=== PATIENT | female | born 2000 | race Hispanic/Latino ===

== ENCOUNTER 2024-05-01 09:48 | Emergency (ER) | payer BC, SELFPAY ==
[2024-05-01 09:50] VITALS: BP 109/75
--- NOTE | 2024-05-01 10:35 | ED.GENMED ---
History of Present Illness
General
Chief Complaint: Breast Problem
Source: patient
Exam Limitations: none
Time Seen by Provider: 05/01/24 10:08
Nursing documentation reviewed up to this point in time: agreed with
History of Present Illness
History of Present Illness:
23-year-old female who states she is nursing her [id number] baby and also at 5 AM today she did a home test which was positive. She has been treated for mastitis and has had a total of 10 doses of Keflex 500 mg. She states she had a
fever of 102 2 days ago and 101 yesterday she has been alternating ibuprofen and Tylenol. Last Tylenol was 5 AM. She also has a headache, nausea and general body aches.
Past History
Past History
ED Past Medical History: Other (anemia, ovArian cyst)
ED Past Surgical History: None
PSI?: No
Social History
Tobacco: Non-smoker
Alcohol: None
Drug: None
Personal: Single
Family History
Family History: Negative Diabetes, Hypertension or CAD
Review of Systems
Review of Systems
Allergies reviewed?: Yes
All Other Systems: ROS reviewed and negative except as documented in HPI and ROS
Constitutional: Reports fever and chills
Respiratory: Denies trouble breathing
Cardiac: Denies chest pain
ABD/GI: Reports nausea (mild); Denies abdominal pain or vomiting
: Reports no symptoms
Musculoskeletal: Reports other (general body aches)
Skin: Reports other (local tender area right breast, mastitis much improved on Keflex)
Neurological: Reports headache
Phy Exam
Physical Exam
Physical Exam:
GENERAL: No acute distress. A&Ox3.
CONSTITUTIONAL: Afebrile.
EYES: PERRL, conjunctivae normal
ENMT: moist mucus membranes, Pharynx nl
RESPIRATORY: Regular respirations, nonlabored, lungs clear.
CARDIOVASCULAR: Regular rate and rhythm, no murmurs, no rubs.
GI: Soft, nontender, normal BS
MUSCULOSKELETAL: Moves with ease. Well perfused.
SKIN: Warm, dry, pink. The breast is normal-appearing, no erythema or swelling. There is an exquisitely tender area at 10:00 just over the nipple, no palpable masses.
PSYCH: Normal mood and affect. Well kept, interactive and appropriate
NEUROLOGIC: Awake, alert and oriented. No focal neurological deficits
Course
Orders/Labs/Results
Orders:
Orders
05/01/24 10:35
Test Result ONCE
05/01/24 10:43
Acetaminophen [Tylenol] 650 mg PO NOW STA
05/01/24 10:47
Complete Blood Count/With Diff Urgent
Comprehensive Metabolic Panel Urgent
HCG, Serum Qualitative Screen Urgent
05/01/24 10:54
US Breast Right Ltd WDC Urgent
Reason for Exam: LOCAL PAIN 10:00
Comment: NURSING, , ON KEFLEX
Abnormal Lab Results
05/01/24
10:47
MCH 31.6 H pg
(27.0-31.0)
MPV 11.3 H fL
(7.4-10.4)
Carbon Dioxide 20 L mmol/L
(22-30)
Creatinine 0.5 L mg/dL
(0.6-1.0)
05/01/24 10:47
05/01/24 10:47
Vital Signs
Initial and Last Documented VS:
Initial Vital Signs
Temp Pulse Resp BP Pulse Ox
98.2 F 83 16 109/75 98
05/01/24 09:50 05/01/24 09:50 05/01/24 09:50 05/01/24 09:50 05/01/24 09:50
Last Documented Vital Signs
Temp Pulse Resp BP Pulse Ox
98.2 F 88 16 109/75 99
05/01/24 09:50 05/01/24 13:20 05/01/24 09:50 05/01/24 09:50 05/01/24 13:20
MDM/Problems Addressed
Differential Diagnosis Includes:
abscess breast, mastitis
MDM/Problems Addressed:
23-year-old female who states she is nursing her [id number]-gzd baby and also at 5 AM today she did a home test which was positive. She has been treated for mastitis and has had a total of 10 doses of Keflex 500 mg. She states she had a
fever of 102 2 days ago and 101 yesterday she has been alternating ibuprofen and Tylenol. Last Tylenol was 5 AM. She also has a headache, nausea and general body aches.
Afebrile, NAD
The breast is without swelling, redness, no sign of cellulitis
CBC, CMP with no clinically significant abnormality
Ultrasound radiology report read: IMPRESSION: There is no ultrasound abnormality to explain the patient's symptoms, which should be followed clinically.
HCG neg. This may be a false neg or her home test was a false positive.
She will continue her Keflex, Tylenol
Pt sees Dr. Morris and she will follow up with her
*Critical Care Note
Total Time (30-74mins, 75-104mins- exclusive of procedures): Not Applicable
ED Attending Note
-
Portions of this chart may have been created with voice recognition software.� Occasional wrong word or��sound alike� substitutions may have occurred due to the inherent limitations of voice recognition software.
Discharge Plan
Departure
Patient Disposition: Home (Routine Discharge)
Date of Disposition: 05/01/24
Time of Disposition: 12:57
Patient with high blood pressure during this ER visit?: No
Condition: Good
Discharge Problem:
Breast pain, right
Instructions: Mastalgia
Prescriptions:
No Action
acetaminophen 325 mg Tablet
650 mg PO Q4HPRN PRN (Reason: mild pain) Qty: 0 0RF
sennosides-docusate sodium [Senna Plus] 8.6-50 mg Tablet
1 tab PO DAILYPRN PRN (Reason: constipation) Qty: 0 0RF
ibuprofen 600 mg Tablet
600 mg PO Q6HPRN PRN (Reason: moderate pain/cramps) Qty: 45 0RF
Vitamin capsule
1 tab PO DAILY
Referrals:
Lázaro Wilson MD [Family Provider] - As needed
Camila Morris MD [Active] - As needed
Activity Restrictions/Additional Instructions:
As we discussed, your ultrasound shows nothing worrisome in the breast. Continue the Keflex, warm compresses. You may continue alternating Tylenol and ibuprofen as needed for pain.
Your test here is negative. This may be a false negative or your home test could be a false positive. Continue to monitor in about a week.
Follow up with Dr. Morris if you are not much improved within the next week.
Interventions
Interventions:
*Risk Screen - Suicide Last Done: 05/01/24 10:35
*General Assessment Last Done: 05/01/24 10:35
*Neglect/Abuse Screening Last Done: 05/01/24 10:35
*Nursing Disposition Last Done: 05/01/24 13:21
ED-Skin Assessment Last Done: 05/01/24 10:35
Discharge Date and Time
Discharge Date/Time: 05/01/24 13:22
Print Language: YORUBA
[2024-05-01 11:09] LABS: % Basophils 0.4 % (0-2); % Eosinophils 3.1 % (0-6); % Immature Granulocytes 0.1 % (0-0.5); % Lymphocytes 28.2 % (20.5-51.1); % Monocytes 7.6 % (1.7-9.3); % Neutrophils 60.6 % (42.2-75.2); Absolute Eosinophils 0.2 10^3/uL (0-0.7); Absolute Lymphocytes 1.9 10^3/uL (1.2-3.4); Absolute Monocytes 0.5 10^3/uL (0.1-0.6); Hematocrit 38.7 % (37.0-47.0); Hemoglobin 13.6 g/dL (12.0-16.0); Mean Corp Hgb Conc. 35.1 g/dL (33.0-37.0); Mean Corpuscular Hgb 31.6 pg (27.0-31.0); Mean Platelet Volume 11.3 fL (7.4-10.4); Nucleated Red Blood Cells % 0 %; Platelet Count 254 10^3/uL (130-400); Red Cell Dist. Width 12.4 % (11.5-14.5); White Blood Cell Count 6.7 10^3/uL (4.8-10.8)
[2024-05-01 11:20] LABS: HCG, Serum Qualitative Screen Negative
[2024-05-01 11:25] LABS: ALT (SGPT) 19 U/L (0-35); AST (SGOT) 23 U/L (14-36); Albumin 4.2 g/dl (3.5-5.0); Alkaline Phosphatase 118 U/L (38-126); Blood Urea Nitrogen 12 mg/dl (7-17); Calcium 9.7 mg/dl (8.4-10.2); Carbon Dioxide 20 mmol/L (22-30); Chloride 105 mmol/L (98-107); Glucose 86 mg/dl (70-99); Potassium 4.3 mmol/L (3.5-5.1); Sodium 139 mmol/L (135-145); Total Bilirubin 0.3 mg/dl (0.2-1.3); Total Protein 6.7 g/dl (6.3-8.2); eGFR > 60.00
== END 2024-05-01 13:22 | disposition home or self-care (01) ==
LOC: EMR 09:48
PROVIDERS: Registered Nurse; EMERGENCY PHYSICIAN Student in an Organized Health Care Education/Training Program; FAMILY PHYSICIAN Family Medicine
DX: N61.0 Mastitis without abscess (principal)
CPT/HCPCS: 99284; 76642; 80053; 84703; 85025

== ENCOUNTER 2024-05-11 22:50 | Emergency (ER) | payer BC, SELFPAY ==
[2024-05-11 22:53] VITALS: BP 107/77
--- NOTE | 2024-05-11 23:20 | ED.GENMED ---
History of Present Illness
General
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
Source: patient
Exam Limitations: none
Time Seen by Provider: 05/11/24 22:59
History of Present Illness
History of Present Illness:
This is a 24 year old female that comes in with c/o left sided lower abd pain. States that she is 6 weeks by a home test. States that she started with this left sided abd pain that feels like a twisting and pulling. States that her last
menstrual cycle was April 05. States that this is her second child. States that she has had very light brown discharge and some nausea. Denies any fever, chills, chest pain, SOB, vomiting, diarrhea, headache, dizziness, urinary burning.
Past History
Past History
ED Past Medical History: Other (anemia, ovarian cyst, Syogren syndrome)
ED Past Surgical History: None
PSI?: No
Social History
Tobacco: Non-smoker
Alcohol: None
Drug: None
Personal:
Living: with family
Family History
Family History: Negative Diabetes, Hypertension or CAD
Review of Systems
Review of Systems
All Other Systems: ROS reviewed and negative except as documented in HPI and ROS
Constitutional: Reports no symptoms; Denies fever or chills
EENT: Reports no symptoms
Respiratory: Reports no symptoms; Denies cough or trouble breathing
Cardiac: Reports no symptoms; Denies chest pain
ABD/GI: Reports abdominal pain (Left sided abd pain) and nausea; Denies vomiting or diarrhea
: Reports no symptoms; Denies dysuria, frequency or urgency
Musculoskeletal: Reports no symptoms
Skin: Reports no symptoms
Neurological: Reports no symptoms; Denies dizzy or headache
Psychiatric: Reports no symptoms
Phy Exam
General Physical Exam
General Presentation: well appearing and no apparent distress
General age: appears stated age
General Skin: warm and dry
General Habitus: normal
General Mental: alert
General Hydration: appears well hydrated
ENT Exam
ENT Exam: TM's normal, pharynx normal and neck supple
Eye Exam
Eye Exam: EOMI
Cardiovascular Exam
Cardiovascular Exam: regular rate/rhythm, no edema, no murmur and normal peripheral pulses
Pulmonary Exam
Pulmonary Exam: lungs clear, no respiratory distress, no rales, chest non tender, no crackles, no rhonchi, no wheezing and no cough
Gastrointestinal Exam
Gastrointestinal Exam: normal bowel sounds, non tender, soft, no organomegaly, no pulsatile mass and non distended
Musculoskeletal Exam
Musculoskeletal Exam: full ROM and no edema
Skin Exam
Skin Exam: normal color, warm/dry, no rash and no petechia
Psychiatric Exam
Psychiatric Exam: normal mood/affect
Course
Orders/Labs/Results
Orders:
Orders
05/11/24 23:19
US W Transvaginal Urgent
Comment: last menstraul cycle April 05
Reason For Exam: Left sided pain, Spotting
05/11/24 23:23
Urinalysis Reflex To Culture Urgent
Date Specimen was Collected: 05/11/24
Time Specimen was Collected: 23:45
05/11/24 23:32
Blood Group&Type Urgent
Complete Blood Count/With Diff Urgent
05/11/24 23:33
Beta HCG Quantitative Urgent
Is this a screen?: No
Comprehensive Metabolic Panel Urgent
Abnormal Lab Results
05/11/24 05/11/24
23:32 23:33
RBC 4.09 L 10^6/uL
(4.20-5.40)
Hct 34.6 L %
(37.0-47.0)
MPV 11.0 H fL
(7.4-10.4)
BUN 20 H mg/dl
(7-17)
Alkaline Phosphatase 131 H U/L
(38-126)
05/11/24 23:32
05/11/24 23:33
Dehydration. Alk phos elevation. HCG 3804.80, O positive
Vital Signs
Initial and Last Documented VS:
Initial Vital Signs
Temp Pulse Resp BP Pulse Ox
97.9 F 87 17 107/77 100
05/11/24 22:53 05/11/24 22:53 05/11/24 22:53 05/11/24 22:53 05/11/24 22:53
Last Documented Vital Signs
Temp Pulse Resp BP Pulse Ox
97.9 F 87 17 107/77 100
05/11/24 22:53 05/11/24 22:53 05/11/24 22:53 05/11/24 22:53 05/11/24 22:53
Information
Weeks gestation: Weeks: (5 weeks 0 days)
Location: Location: (Uterus)
MDM/Problems Addressed
Differential Diagnosis Includes:
tuba , Musculoskeletal stretching
MDM/Problems Addressed:
This is a 24 year old female that comes in with c/o left lower abd pain. State that she is 6 weeks and that she feels like this is a twisting and pulling.
will check labs, urine and get US.
called and spoke wtih US to make sure the gestational sac was in the Uterus as this was not mentioned in the Report. Told that the gestational sac is in the uterus. Back into see patient. Explained that she is a little dehydrated and that there is a
Gestational sac in the uterus. There is a left sided corpus luteum follicle seen on Ultrasound. 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 Return with increased pain
Chronic conditions affecting care:
Acute Exacerbation and/or Progression of Chronic Illness:
NA
*Radiology
Radiology exam reviewed: radiology read reviewed (US- There is a probable gestational sac with mean sac diameter of 0.49cm which would correspond to a gestational age of 5 weeks 0 days. No pole or yolk sac is identified yet. The ovaries and
adnexa appear normal (with corpus luteum follicle on the left). No sonographic evidence of torsion.) and other (US cont- Follow-up per OB and US as clinically indicated. )
*Pulse Oximetry
Patient hypoxic: no
*EKG
Interpreted by ED Provider?: NA
Rate: EKG- N/A
*Drug Inspector Interpretation
Rate: Drug Inspector- N/A
*Critical Care Note
Total Time (30-74mins, 75-104mins- exclusive of procedures): Not Applicable
ED Attending Note
-
Portions of this chart may have been created with voice recognition software.� Occasional wrong word or��sound alike� substitutions may have occurred due to the inherent limitations of voice recognition software.
Discharge Plan
Departure
Patient Disposition: Home (Routine Discharge)
Date of Disposition: 05/12/24
Time of Disposition: 00:53
Patient with high blood pressure during this ER visit?: No
Condition: Good
Covid-19: Not Applicable
Discharge Problem:
Left sided abdominal pain
Instructions: Abdominal Pain
Prescriptions:
No Action
acetaminophen 325 mg Tablet
650 mg PO Q4HPRN PRN (Reason: mild pain) Qty: 0 0RF
sennosides-docusate sodium [Senna Plus] 8.6-50 mg Tablet
1 tab PO DAILYPRN PRN (Reason: constipation) Qty: 0 0RF
ibuprofen 600 mg Tablet
600 mg PO Q6HPRN PRN (Reason: moderate pain/cramps) Qty: 45 0RF
Vitamin capsule
1 tab PO DAILY
Referrals:
Neo Miramontes MD [Active] - Follow up in 2-3 days
Lázaro Wilson MD [Family Provider] -
Activity Restrictions/Additional Instructions:
As discussed, your blood work shows that you are a little dehydrated. Please increase your water intake to 8-8oz glasses daily. Your Ultrasound shows that you have a gestational sac in the uterus and you are about 5 weeks 0 days. Please follow up
with the BLOOD BANK CALENDAR CONTROL CLERK in the next 2-3 days for recheck. IF YOU HAVE INCREASED OR CHANGING PAIN, OR YOU HAVE ANY OTHER CONCERNS PLEASE RETURN TO THE EMERGENCY ROOM.
Interventions
Interventions:
*Risk Screen - Suicide Last Done: 05/11/24 22:53
*General Assessment Last Done: 05/11/24 22:53
*Neglect/Abuse Screening Last Done: 05/11/24 22:53
ED- Fall Risk Assessment Last Done: 05/11/24 22:53
*ED COVID-19 Vaccine History Last Done: 05/11/24 22:53
ED-Female Genitourinary Assessment Last Done: 05/11/24 23:30
Discharge Date and Time
Print Language: BAHRAINI
[2024-05-12 00:05] LABS: ALT (SGPT) 29 U/L (0-35); AST (SGOT) 25 U/L (14-36); Albumin 4.3 g/dl (3.5-5.0); Alkaline Phosphatase 131 U/L (38-126); Blood Urea Nitrogen 20 mg/dl (7-17); Calcium 9.8 mg/dl (8.4-10.2); Carbon Dioxide 22 mmol/L (22-30); Chloride 103 mmol/L (98-107); Glucose 85 mg/dl (70-99); Potassium 4.5 mmol/L (3.5-5.1); Sodium 139 mmol/L (135-145); Total Bilirubin 0.2 mg/dl (0.2-1.3); Total Protein 6.8 g/dl (6.3-8.2); eGFR > 60.00
[2024-05-12 00:06] LABS: % Basophils 0.5 % (0-2); % Eosinophils 1.3 % (0-6); % Immature Granulocytes 0.4 % (0-0.5); % Lymphocytes 33.9 % (20.5-51.1); % Monocytes 6.1 % (1.7-9.3); % Neutrophils 57.8 % (42.2-75.2); Absolute Eosinophils 0.1 10^3/uL (0-0.7); Absolute Lymphocytes 2.6 10^3/uL (1.2-3.4); Absolute Monocytes 0.5 10^3/uL (0.1-0.6); Absolute Neutrophils 4.4 10^3/uL (1.4-6.5); Hematocrit 34.6 % (37.0-47.0); Hemoglobin 12.6 g/dL (12.0-16.0); Mean Corp Hgb Conc. 36.4 g/dL (33.0-37.0); Mean Corpuscular Hgb 30.8 pg (27.0-31.0); Mean Corpuscular Volume 84.6 fL (81.0-99.0); Nucleated Red Blood Cells % 0 %; Red Blood Cell Count 4.09 10^6/uL (4.20-5.40); Red Cell Dist. Width 12.4 % (11.5-14.5); White Blood Cell Count 7.7 10^3/uL (4.8-10.8)
[2024-05-12 00:21] LABS: Platelet Count 255 10^3/uL (130-400)
[2024-05-12 00:53] VITALS: BP 119/74
[2024-05-12 01:12] LABS: Urine Albumin Negative (Neg - Trace); Urine Bilirubin Negative (Negative); Urine Character Clear (Clear); Urine Color Yellow; Urine Glucose Negative (Negative); Urine Ketone Negative (Negative); Urine Leukocyte Negative (Negative); Urine Nitrite Negative (Negative); Urine Occult Blood Negative (Negative); Urine Urobilinogen Negative (Neg - 1+)
== END 2024-05-12 01:02 | disposition home or self-care (01) ==
LOC: EMR 22:50
PROVIDERS: Clinical Nurse Specialist Family Health; EMERGENCY PHYSICIAN Student in an Organized Health Care Education/Training Program; FAMILY PHYSICIAN Family Medicine
DX: O26.891 Other specified pregnancy related conditions, first trimester (principal); R10.32 Left lower quadrant pain; Z3A.01 Less than 8 weeks gestation of pregnancy
CPT/HCPCS: 99284; 76801; 76817; 80053; 81003; 84702; 85025; 86900; 86901

== ENCOUNTER → 2024-05-22 14:57 | Outpatient (REF) | payer BC, SELFPAY | LOC: RAD 14:57 | PROVIDERS: ATTENDING PHYSICIAN Nurse Practitioner Family; FAMILY PHYSICIAN Family Medicine | DX: Z34.00 Encounter for supervision of normal first pregnancy, unspecified trimester (principal) | CPT/HCPCS: 76801; 76817 ==

== ENCOUNTER → 2024-07-03 07:49 | Outpatient (REF) | payer BC, SELFPAY | LOC: PNTC 07:49 | PROVIDERS: ATTENDING PHYSICIAN Obstetrics & Gynecology | DX: O09.91 Supervision of high risk pregnancy, unspecified, first trimester (principal); Z36.0 Encounter for antenatal screening for chromosomal anomalies; Z36.82 Encounter for antenatal screening for nuchal translucency | CPT/HCPCS: 76801; 76813 ==

== ENCOUNTER → 2024-07-31 12:53 | Outpatient (REF) | payer BC, SELFPAY | LOC: PNTC 12:53 | PROVIDERS: ATTENDING PHYSICIAN Obstetrics & Gynecology | DX: O09.91 Supervision of high risk pregnancy, unspecified, first trimester (principal); M35.00 Sjogren syndrome, unspecified | CPT/HCPCS: 76805; 76817 ==

== ENCOUNTER → 2024-08-28 14:51 | Outpatient (REF) | payer BC, SELFPAY | LOC: PNTC 14:51 | PROVIDERS: ATTENDING PHYSICIAN Obstetrics & Gynecology | DX: O99.112 Other diseases of the blood and blood-forming organs and certain disorders involving the immune mechanism complicating pregnancy, second trimester (principal) | CPT/HCPCS: 76811; 76817 ==

== ENCOUNTER 2024-09-06 14:34 | Observation (INO) | payer BC, SELFPAY ==
[2024-09-06 14:51] VITALS: BP 100/69; BMI 26.5
[2024-09-06 15:29] LABS: Urine Albumin Negative (Neg - Trace); Urine Bilirubin Negative (Negative); Urine Character Clear (Clear); Urine Color Yellow; Urine Glucose Negative (Negative); Urine Ketone Negative (Negative); Urine Leukocyte Negative (Negative); Urine Nitrite Negative (Negative); Urine Occult Blood Negative (Negative); Urine Urobilinogen Negative (Neg - 1+)
[2024-09-06 15:39] LABS: Hematocrit 31.9 % (37.0-47.0); Hemoglobin 11.1 g/dL (12.0-16.0); Mean Corp Hgb Conc. 34.8 g/dL (33.0-37.0); Mean Corpuscular Hgb 31.6 pg (27.0-31.0); Mean Corpuscular Volume 90.9 fL (81.0-99.0); Mean Platelet Volume 11.4 fL (7.4-10.4); Platelet Count 222 10^3/uL (130-400); Red Blood Cell Count 3.51 10^6/uL (4.20-5.40); Red Cell Dist. Width 12.8 % (11.5-14.5); White Blood Cell Count 9.5 10^3/uL (4.8-10.8)
[2024-09-06 15:59] LABS: ALT (SGPT) 12 U/L (0-35); AST (SGOT) 17 U/L (14-36); Albumin 2.9 g/dl (3.5-5.0); Alkaline Phosphatase 69 U/L (38-126); Blood Urea Nitrogen 9 mg/dl (7-17); Calcium 8.7 mg/dl (8.4-10.2); Carbon Dioxide 24 mmol/L (22-30); Chloride 103 mmol/L (98-107); Estimated Creatinine Clearance 122 ml/min; Glucose 105 mg/dl (70-99); Potassium 3.7 mmol/L (3.5-5.1); Sodium 133 mmol/L (135-145); Total Bilirubin 0.1 mg/dl (0.2-1.3); Total Protein 5.5 g/dl (6.3-8.2); eGFR > 60.00
[2024-09-06] MEDS: LR 1000 IV (16:03)
== END 2024-09-06 17:35 | disposition home or self-care (01) ==
LOC: LDRP 14:34
PROVIDERS: ADMITTING PHYSICIAN Obstetrics & Gynecology
DX: O26.892 Other specified pregnancy related conditions, second trimester (principal); Z3A.22 22 weeks gestation of pregnancy; R42 Dizziness and giddiness; R10.9 Unspecified abdominal pain; M35.00 Sjogren syndrome, unspecified
CPT/HCPCS: 76815; 76817; 80053; 81003; 85027; G0378

== ENCOUNTER → 2024-09-25 13:29 | Outpatient (REF) | payer BC, SELFPAY | LOC: PNTC 13:29 | PROVIDERS: ATTENDING PHYSICIAN Obstetrics & Gynecology | DX: O99.119 Other diseases of the blood and blood-forming organs and certain disorders involving the immune mechanism complicating pregnancy, unspecified trimester (principal) | CPT/HCPCS: 76816 ==

== ENCOUNTER → 2024-10-23 10:31 | Outpatient (REF) | payer BC, SELFPAY | LOC: PNTC 10:31 | PROVIDERS: ATTENDING PHYSICIAN Obstetrics & Gynecology | DX: O99.119 Other diseases of the blood and blood-forming organs and certain disorders involving the immune mechanism complicating pregnancy, unspecified trimester (principal); O43.199 Other malformation of placenta, unspecified trimester | CPT/HCPCS: 76816 ==

== ENCOUNTER 2024-11-09 16:40 | Observation (INO) | payer BC, SELFPAY ==
[2024-11-09 17:17] LABS: % Basophils 0.3 % (0-2); % Immature Granulocytes 1.1 % (0-0.5); % Lymphocytes 28.1 % (20.5-51.1); % Monocytes 5.2 % (1.7-9.3); % Neutrophils 64.3 % (42.2-75.2); Absolute Eosinophils 0.1 10^3/uL (0-0.7); Absolute Immature Granulocytes 0.1 10^3/uL (0-0.05); Absolute Monocytes 0.4 10^3/uL (0.1-0.6); Absolute Neutrophils 4.5 10^3/uL (1.4-6.5); Hematocrit 32.6 % (37.0-47.0); Hemoglobin 11.3 g/dL (12.0-16.0); Mean Corp Hgb Conc. 34.7 g/dL (33.0-37.0); Mean Corpuscular Hgb 31.3 pg (27.0-31.0); Mean Corpuscular Volume 90.3 fL (81.0-99.0); Mean Platelet Volume 11.9 fL (7.4-10.4); Nucleated Red Blood Cells % 0 %; Platelet Count 177 10^3/uL (130-400); Red Blood Cell Count 3.61 10^6/uL (4.20-5.40); Red Cell Dist. Width 13.2 % (11.5-14.5)
[2024-11-09 17:33] LABS: ALT (SGPT) 11 U/L (0-35); AST (SGOT) 17 U/L (14-36); Alkaline Phosphatase 100 U/L (38-126); Blood Urea Nitrogen 6 mg/dl (7-17); Calcium 8.6 mg/dl (8.4-10.2); Carbon Dioxide 24 mmol/L (22-30); Chloride 105 mmol/L (98-107); Glucose 101 mg/dl (70-99); Lipase 43 U/L (23-300); Potassium 3.6 mmol/L (3.5-5.1); Sodium 134 mmol/L (135-145); Total Bilirubin 0.3 mg/dl (0.2-1.3); Total Protein 5.6 g/dl (6.3-8.2); eGFR > 60.00
[2024-11-09 17:39] LABS: Protein/creatinine Ratio 0.1; Urine Protein 11 mg/dl
[2024-11-09 17:42] VITALS: BP 107/58; BMI 29.3
[2024-11-09 18:27] LABS: Amylase 62 U/L (30-110)
== END 2024-11-09 18:21 | disposition home or self-care (01) ==
LOC: PNTC-IN 16:40
PROVIDERS: ADMITTING PHYSICIAN Obstetrics & Gynecology
DX: O36.8130 Decreased fetal movements, third trimester, not applicable or unspecified (principal); R10.11 Right upper quadrant pain; R51.9 Headache, unspecified; Z3A.31 31 weeks gestation of pregnancy; O99.891 Other specified diseases and conditions complicating pregnancy
CPT/HCPCS: 36415; 80053; 82150; 82570; 83690; 84156; 85025; G0378

== ENCOUNTER → 2024-11-20 11:00 | Outpatient (REF) | payer BC, SELFPAY | LOC: PNTC 11:00 | PROVIDERS: ATTENDING PHYSICIAN Obstetrics & Gynecology | DX: O43.199 Other malformation of placenta, unspecified trimester (principal); O99.891 Other specified diseases and conditions complicating pregnancy | CPT/HCPCS: 59025; 76816 ==

== ENCOUNTER → 2024-11-27 11:32 | Outpatient (REF) | payer BC, SELFPAY | LOC: PNTC 11:32 | PROVIDERS: ATTENDING PHYSICIAN Obstetrics & Gynecology | DX: O43.199 Other malformation of placenta, unspecified trimester (principal); M35.00 Sjogren syndrome, unspecified | CPT/HCPCS: 59025; 76815 ==

== ENCOUNTER → 2024-12-04 11:31 | Outpatient (REF) | payer BC, SELFPAY | LOC: PNTC 11:31 | PROVIDERS: ATTENDING PHYSICIAN Obstetrics & Gynecology | DX: O43.199 Other malformation of placenta, unspecified trimester (principal); O99.350 Diseases of the nervous system complicating pregnancy, unspecified trimester | CPT/HCPCS: 59025; 76815 ==

== ENCOUNTER → 2024-12-11 11:27 | Outpatient (REF) | payer BC, SELFPAY | LOC: PNTC 11:27 | PROVIDERS: ATTENDING PHYSICIAN Obstetrics & Gynecology | DX: O43.199 Other malformation of placenta, unspecified trimester (principal); M35.00 Sjogren syndrome, unspecified | CPT/HCPCS: 59025; 76815 ==

== ENCOUNTER 2024-12-16 22:22 | Observation (INO) | payer BC, SELFPAY ==
[2024-12-16 22:47] VITALS: BMI 29.3
[2024-12-16 22:59] LABS: Urine Albumin Negative (Neg - Trace); Urine Bilirubin Negative (Negative); Urine Character Clear (Clear); Urine Color Yellow; Urine Glucose Negative (Negative); Urine Ketone Negative (Negative); Urine Leukocyte Negative (Negative); Urine Nitrite Negative (Negative); Urine Occult Blood Negative (Negative); Urine Specific Gravity 1.005 (<1.030); Urine Urobilinogen Negative (Neg - 1+)
[2024-12-16 23:11] LABS: Hematocrit 33.4 % (37.0-47.0); Hemoglobin 12.1 g/dL (12.0-16.0); Mean Corp Hgb Conc. 36.2 g/dL (33.0-37.0); Mean Corpuscular Hgb 31.4 pg (27.0-31.0); Mean Corpuscular Volume 86.8 fL (81.0-99.0); Mean Platelet Volume 11.5 fL (7.4-10.4); Platelet Count 154 10^3/uL (130-400); Red Blood Cell Count 3.85 10^6/uL (4.20-5.40); Red Cell Dist. Width 13.6 % (11.5-14.5); White Blood Cell Count 7.6 10^3/uL (4.8-10.8)
[2024-12-16 23:25] LABS: ALT (SGPT) 11 U/L (0-35); AST (SGOT) 17 U/L (14-36); Albumin 3.1 g/dl (3.5-5.0); Alkaline Phosphatase 131 U/L (38-126); Blood Urea Nitrogen 5 mg/dl (7-17); Carbon Dioxide 22 mmol/L (22-30); Chloride 108 mmol/L (98-107); Estimated Creatinine Clearance > 125 ml/min; Glucose 85 mg/dl (70-99); Potassium 3.9 mmol/L (3.5-5.1); Sodium 136 mmol/L (135-145); Total Bilirubin 0.3 mg/dl (0.2-1.3); Total Protein 5.8 g/dl (6.3-8.2); Uric Acid 4.3 mg/dl (2.5-6.2); eGFR > 60.00
[2024-12-16 23:27] LABS: Protein/creatinine Ratio 0.7; Urine Protein 15 mg/dl
== END 2024-12-17 00:05 | disposition home or self-care (01) ==
LOC: LDRP 22:22
PROVIDERS: ADMITTING PHYSICIAN Obstetrics & Gynecology
DX: O26.893 Other specified pregnancy related conditions, third trimester (principal); Z3A.36 36 weeks gestation of pregnancy; R51.9 Headache, unspecified
CPT/HCPCS: 80053; 81003; 82570; 84156; 84550; 85027; G0378

== ENCOUNTER → 2024-12-18 11:09 | Outpatient (REF) | payer BC, SELFPAY | LOC: PNTC 11:09 | PROVIDERS: ATTENDING PHYSICIAN Obstetrics & Gynecology | DX: M35.00 Sjogren syndrome, unspecified (principal) | CPT/HCPCS: 59025; 76816 ==

== ENCOUNTER 2024-12-22 11:32 | Observation (INO) | payer BC, SELFPAY ==
[2024-12-22 12:03] VITALS: BP 93/63; BMI 29.3
[2024-12-22 12:43] LABS: Hematocrit 33.8 % (37.0-47.0); Hemoglobin 11.8 g/dL (12.0-16.0); Mean Corp Hgb Conc. 34.9 g/dL (33.0-37.0); Mean Corpuscular Hgb 31.2 pg (27.0-31.0); Mean Corpuscular Volume 89.4 fL (81.0-99.0); Mean Platelet Volume 12.2 fL (7.4-10.4); Platelet Count 179 10^3/uL (130-400); Red Blood Cell Count 3.78 10^6/uL (4.20-5.40); Red Cell Dist. Width 13.3 % (11.5-14.5); White Blood Cell Count 7.2 10^3/uL (4.8-10.8)
[2024-12-22 12:58] LABS: ALT (SGPT) 11 U/L (0-35); AST (SGOT) 17 U/L (14-36); Albumin 3.3 g/dl (3.5-5.0); Alkaline Phosphatase 134 U/L (38-126); Blood Urea Nitrogen 5 mg/dl (7-17); Calcium 8.9 mg/dl (8.4-10.2); Carbon Dioxide 22 mmol/L (22-30); Chloride 106 mmol/L (98-107); Estimated Creatinine Clearance > 125 ml/min; Glucose 87 mg/dl (70-99); Potassium 4.2 mmol/L (3.5-5.1); Sodium 135 mmol/L (135-145); Total Bilirubin 0.6 mg/dl (0.2-1.3); Total Protein 5.9 g/dl (6.3-8.2); eGFR > 60.00
[2024-12-22 13:06] LABS: Urine Albumin 1+ (Neg - Trace); Urine Bilirubin Negative (Negative); Urine Character Slightly Cloudy (Clear); Urine Color Yellow; Urine Glucose Negative (Negative); Urine Ketone Negative (Negative); Urine Leukocyte 3+ (Negative); Urine Nitrite Negative (Negative); Urine Occult Blood Negative (Negative); Urine Specific Gravity 1.005 (<1.030); Urine Urobilinogen Negative (Neg - 1+)
[2024-12-22 13:56] LABS: Urine Squamous Cell >30 /LPF (Few)
[2024-12-22 13:57] LABS: Urine Bacteria Moderate (Negative); Urine White Cell 16-20 /HPF (0-5)
[2024-12-22 13:58] LABS: Urine Red Blood Cell 0-2 /HPF (0-2); Urine Urothelial Cell 0-2 /LPF (FEW)
[2024-12-22 14:45] LABS: Protein/creatinine Ratio 0.2; Urine Protein 14 mg/dl
[2024-12-22] MEDS: TYLENOL 1000 MG PO (15:22)
== END 2024-12-22 17:00 | disposition home or self-care (01) ==
LOC: LDRP 11:32
PROVIDERS: ADMITTING PHYSICIAN Obstetrics & Gynecology
DX: O26.893 Other specified pregnancy related conditions, third trimester (principal); R51.9 Headache, unspecified; R11.0 Nausea; M35.00 Sjogren syndrome, unspecified; O99.013 Anemia complicating pregnancy, third trimester; D64.9 Anemia, unspecified; Z3A.37 37 weeks gestation of pregnancy
CPT/HCPCS: 80053; 81003; 81015; 82570; 84156; 85027; 86850; 86900; 86901; G0378

== ENCOUNTER → 2024-12-25 11:22 | Outpatient (REF) | payer BC, SELFPAY | LOC: PNTC 11:22 | PROVIDERS: ATTENDING PHYSICIAN Obstetrics & Gynecology | DX: O43.199 Other malformation of placenta, unspecified trimester (principal); M35.00 Sjogren syndrome, unspecified | CPT/HCPCS: 59025; 76815 ==

== ENCOUNTER → 2024-12-27 13:33 | Outpatient (REF) | payer BC, SELFPAY | LOC: PNTC 13:33 | PROVIDERS: ATTENDING PHYSICIAN Obstetrics & Gynecology | DX: O36.8190 Decreased fetal movements, unspecified trimester, not applicable or unspecified (principal) | CPT/HCPCS: 59025; 76815 ==

== ENCOUNTER 2024-12-27 15:20 | Inpatient (IN) | payer BC, SELFPAY ==
[2024-12-27 15:26] VITALS: BP 110/64; BMI 28.7
[2024-12-27 17:09] LABS: Hematocrit 36.5 % (37.0-47.0); Hemoglobin 12.6 g/dL (12.0-16.0); Mean Corp Hgb Conc. 34.5 g/dL (33.0-37.0); Mean Corpuscular Hgb 31.2 pg (27.0-31.0); Mean Corpuscular Volume 90.3 fL (81.0-99.0); Mean Platelet Volume 12.2 fL (7.4-10.4); Platelet Count 174 10^3/uL (130-400); Red Blood Cell Count 4.04 10^6/uL (4.20-5.40); Red Cell Dist. Width 13.6 % (11.5-14.5)
[2024-12-27] MEDS: STADOL 1 MG IV (19:04)
[2024-12-28] MEDS: LR 1000 IV ×2 (00:43→02:45)
[2024-12-28] MEDS: SUBLIMAZE 100 MCG EPIDURAL (01:09)
[2024-12-28] MEDS: FENTANYL/BUPIVACAINE 100 EPIDURAL (01:19)
[2024-12-28] MEDS: PITOCIN 30 UNITS/NSS 500 ML IV (01:23)
[2024-12-28] MEDS: PRENATAL PLUS PO (09:15)
[2024-12-28] MEDS: MOTRIN 600 MG PO ×2 (14:39→20:27)
[2024-12-28] MEDS: TYLENOL 650 MG PO (19:27)
[2024-12-29] MEDS: SENOKOT-S 1 TABLET PO (06:32)
[2024-12-29 06:45] LABS: Hematocrit 34.3 % (37.0-47.0); Hemoglobin 11.8 g/dL (12.0-16.0)
[2024-12-29] MEDS: PRENATAL PLUS 1 TABLET PO (08:28)
[2024-12-29 11:38] LABS: Syphilis/T. pallidum Ab Reflex Negative (Negative)
[2024-12-29] MEDS: MOTRIN 600 MG PO (12:42)
== END 2024-12-29 19:02 | disposition home or self-care (01) | DRG 807 ==
LOC: LDRP 15:20
PROVIDERS: ADMITTING PHYSICIAN Obstetrics & Gynecology
PROC: 10E0XZZ Delivery of Products of Conception, External Approach (ICD-10-PCS; 2024-12-27)
PROC: 10907ZC Drainage of Amniotic Fluid, Therapeutic from Products of Conception, Via Natural or Artificial Opening (ICD-10-PCS; 2024-12-28)
DX: O70.0 First degree perineal laceration during delivery (principal); Z37.0 Single live birth; Z3A.38 38 weeks gestation of pregnancy
CPT/HCPCS: 88307; 85014; 85018; 85027; 86780; 86850; 86900; 86901

== ENCOUNTER 2025-08-06 11:08 | Emergency (ER) | payer BC, SELFPAY ==
[2025-08-06 11:15] VITALS: BP 122/81
[2025-08-06 12:00] LABS: Urine Character Clear (Clear)
[2025-08-06 12:22] LABS: Urine Squamous Cell 21-25 /LPF (Few)
[2025-08-06 12:23] LABS: Urine White Cell 0-2 /HPF (0-5)
[2025-08-06] MEDS: ZOFRAN 4 MG IV (12:24)
[2025-08-06] MEDS: TORADOL 30 MG IV (12:24)
[2025-08-06] MEDS: NSS 1000 IV ×2 (12:24→13:38)
[2025-08-06 12:26] LABS: Hematocrit 42.3 % (37.0-47.0); Hemoglobin 14.6 g/dL (12.0-16.0); Mean Corp Hgb Conc. 34.5 g/dL (33.0-37.0); Mean Corpuscular Volume 88.5 fL (81.0-99.0); Nucleated Red Blood Cells % 0 %; Platelet Count 220 10^3/uL (130-400); Red Cell Dist. Width 12.4 % (11.5-14.5)
[2025-08-06 12:44] LABS: ALT (SGPT) 27 U/L (0-35); AST (SGOT) 24 U/L (14-36); Albumin 4.6 g/dl (3.5-5.0); Alkaline Phosphatase 133 U/L (38-126); Blood Urea Nitrogen 20 mg/dl (7-17); Calcium 9.0 mg/dl (8.4-10.2); Carbon Dioxide 28 mmol/L (22-30); Chloride 101 mmol/L (98-107); Glucose 96 mg/dl (70-99); Lipase 33 U/L (23-300); Potassium 4.1 mmol/L (3.5-5.1); Sodium 137 mmol/L (135-145); Total Protein 7.7 g/dl (6.3-8.2); eGFR > 60.00
[2025-08-06 12:45] LABS: HCG, Serum Qualitative Screen Negative
--- NOTE | 2025-08-06 12:46 | ED.GENMED ---
History of Present Illness
General
Chief Complaint: Abdominal Symptoms
Source: patient
Time Seen by Provider: 08/06/25 12:04
History of Present Illness
History of Present Illness:
25-year-old female with past medical history of Sjogren syndrome and anemia presents to the emergency department for evaluation of nausea that started last night, in the middle of the night started with vomiting and diarrhea which persist today and
now with generalized abdominal cramping. No known sick contacts, recent travel or recent antibiotics. She denies any fevers. No urinary symptoms. Patient did attempt a Zofran ODT at home and has not vomited since but still endorses some nausea.
Past History
Past History
ED Past Medical History: Other (anemia, ovarian cyst, Syogren syndrome)
ED Past Surgical History: None
PSI?: No
Social History
Tobacco: Non-smoker
Alcohol: None
Drug: None
Personal:
Living: with family
Family History
Family History: Negative Diabetes, Hypertension or CAD
Review of Systems
Review of Systems
All Other Systems: ROS reviewed and negative except as documented in HPI and ROS
Phy Exam
Physical Exam
Physical Exam:
GENERAL: Alert , in no apparent distress
EYE: clear conjunctiva b/l
HEAD: NCAT
ENT: o/p clr, mmm.
CARDIAC: Tachycardic rate, regular rhythm
LUNGS: Clear breath sounds bilaterally, no acute respiratory distress, no wheezes/rales/rhonchi
ABDOMEN: Soft, generally tender but no rebound or guarding
NEUROLOGICAL: Alert and oriented
SKIN: Warm and dry, skin intact.
MUSCULOSKELETAL: No edema, well perfused.
PSYCH: Normal and appropriate interaction.
Scores
Heart Failure Risk
Heart Failure Risk Score: Not Applicable
Heart Score for Chest Pain Patients
STEMI patient?: Not applicable
Withdrawal Assessment of Alcohol
Withdrawal Assessment Completed?: Not applicable
Sepsis
Sepsis Screening
Sepsis Assessment: Sepsis Ruled Out
Sepsis Screen
Sepsis Screen: Sepsis Ruled Out
Date: 08/06/25
Time: 17:38
Course
Orders/Labs/Results
Orders:
Orders
08/06/25 11:18
IV Insert/Care/Rem.- Treatment PRN
Test Result ONCE
08/06/25 11:31
Urinalysis Reflex To Culture Urgent
Date Specimen was Collected: 08/06/25
Time Specimen was Collected: 11:18
Urine Microscopic Reflex Cult Urgent
Urine Culture Urgent
EMERALD Source: U
Specimen Description:
Date Specimen was Collected: 08/06/25
Time Specimen was Collected: 11:18
08/06/25 12:16
0.9% Sodium Chloride 1000 ml [Nss] 1,000 ml IV BOLUS
Ketorolac [Toradol] 30 mg IV NOW STA
Ondansetron Injectable [Zofran] 4 mg IV NOW STA
08/06/25 12:17
Complete Blood Count/With Diff Urgent
Comprehensive Metabolic Panel Urgent
HCG, Serum Qualitative Screen Urgent
Comment: Notify provider if positive test present
Lipase Urgent
08/06/25 13:24
CT Abd/pelvis W Iv Cont Urgent
Comment:
Reason For Exam: abd pain, N/V/D
0.9% Sodium Chloride 1000 ml [Nss] 1,000 ml IV BOLUS
Morphine Sulfate 2 mg IV NOW STA
Abnormal Lab Results
08/06/25 08/06/25
11:31 12:17
MPV 11.4 H fL
(7.4-10.4)
Absolute Neuts (auto) 6.9 H 10^3/uL
(1.4-6.5)
Absolute Lymphs (auto) 0.3 L 10^3/uL
(1.2-3.4)
Neutrophils % 91.0 H %
(42.2-75.2)
Lymphocytes % 4.5 L %
(20.5-51.1)
BUN 20 H mg/dl
(7-17)
Alkaline Phosphatase 133 H U/L
(38-126)
Leukocyte Esterase Rfl 1+ A
(Negative)
Urine RBC 3-6 A /HPF
(0-2)
Urine Bacteria (Reflex) Few A
(Negative)
Urine Albumin (Reflex) 2+ A
(Neg - Trace)
08/06/25 12:17
08/06/25 12:17
Vital Signs
Initial and Last Documented VS:
Initial Vital Signs
Temp Pulse Resp BP Pulse Ox
98.8 F 130 26 122/81 98
08/06/25 11:15 08/06/25 11:15 08/06/25 11:15 08/06/25 11:15 08/06/25 11:15
Last Documented Vital Signs
Temp Pulse Resp BP Pulse Ox
98.8 F 94 20 105/74 99
08/06/25 11:15 08/06/25 17:00 08/06/25 17:00 08/06/25 17:00 08/06/25 17:00
MDM/Problems Addressed
Differential Diagnosis Includes:
Gastroenteritis
Colitis
Viral syndrome/flu/COVID
Dehydration
Electrolyte imbalance
MDM/Problems Addressed:
25-year-old female presenting to the ER for evaluation of nausea vomiting and diarrhea. Symptoms started overnight. Patient in no acute distress here, she is tachycardic which I do suspect is related to volume depletion from her vomiting and
diarrhea. Will treat with fluids, Toradol and Zofran. Reassessment following.
*Radiology
Radiology exam reviewed: radiology read reviewed
*Pulse Oximetry
SaO2: 98
Oxygen Mode of Delivery: Room air
Patient hypoxic: no
*Critical Care Note
Total Time (30-74mins, 75-104mins- exclusive of procedures): Not Applicable
Comment
Comment:
On reevaluation patient still with pain despite medications. Additional 2 mg of morphine added. Her labs are reassuring but given her persistent pain will obtain CT scan to further evaluate. Additional liter of IV fluids ordered as well.
Patient Management
Escalation/DeEscalation of care consider admission/obs:
CT shows enterocolitis. Patient symptoms remain improved. Supportive care at home. Aware of return precautions to the ER
ED Attending Note
-
Portions of this chart may have been created with voice recognition software.� Occasional wrong word or��sound alike� substitutions may have occurred due to the inherent limitations of voice recognition software.
Discharge Plan
Departure
Patient Disposition: Home (Routine Discharge)
Date of Disposition: 08/06/25
Time of Disposition: 16:28
Patient with high blood pressure during this ER visit?: No
Discharge Problem:
Gastroenteritis
Instructions: Nausea and Vomiting, Adult (DC)
Prescriptions:
New
ondansetron 4 mg tablet,disintegrating
4 mg PO TIDPRN PRN (Reason: nausea/vomiting) Qty: 10 0RF
No Action
Vitamin capsule
1 tab PO DAILY
acetaminophen 325 mg Tablet
650 mg PO Q4HPRN PRN (Reason: mild pain) Qty: 0 0RF
sennosides-docusate sodium 8.6-50 mg Tablet
1 tab PO DAILYPRN PRN (Reason: constipation) Qty: 0 0RF
calcium carbonate [Calcium Antacid] 200 mg calcium (500 mg) Tablet,Chewable
400 mg PO Q6HPRN PRN (Reason: indigestion) Qty: 0 0RF
ibuprofen 600 mg Tablet
600 mg PO Q6HPRN PRN (Reason: moderate pain/cramps) Qty: 30 0RF
Referrals:
UNKNOWN - PT DOES,NOT KNOW [Family Provider]
Interventions
Interventions:
*General Assessment Last Done: 08/06/25 11:15
*Neglect/Abuse Screening Last Done: 08/06/25 11:15
[facility] Risk Assessment Tool Last Done: 08/06/25 12:28
*Risk Screen - Suicide (C-SSRS) Last Done: 08/06/25 11:15
*Nursing Disposition Last Done: 08/06/25 17:00
BK-Dwsajw-Safnfrdjou Assessment Last Done: 08/06/25 12:28
Discharge Date and Time
Discharge Date/Time: 08/06/25 17:19
Print Language: MONEGASQUE
[2025-08-06] MEDS: MORPHINE SULFATE 2 MG IV (13:38)
[2025-08-06 13:40] VITALS: BP 99/59
[2025-08-06 17:00] VITALS: BP 105/74
== END 2025-08-06 17:19 | disposition home or self-care (01) ==
LOC: EMR 11:08
PROVIDERS: EMERGENCY PHYSICIAN Emergency Medicine
DX: K52.9 Noninfective gastroenteritis and colitis, unspecified (principal); M35.00 Sjogren syndrome, unspecified
CPT/HCPCS: 96374; 96375; 99284; 74177; 80053; 81003; 81015; 83690; 84703; 85025; 87086; Q9967